=== PATIENT | female | born 2000 | race African-American/Black ===

== ENCOUNTER 2018-04-12 11:25 | Emergency (ER) | payer OTHER, MEDICAID ==
[~2018-04-12] VITALS: Ht 177.8 cm; Wt 71.7 kg
[~2018-04-12 11:25] MED LIST: AMOXICILLIN500 M1 PO; AMOXICILLIN875 MG PO; BACTRIM DS TAB1 EACH PO; CHERATUSSIN AC118 ML PO; CLARITIN10 MG PO; DEPO-PROVE150 MG/1 M IM; IBUPROFEN 600600 M1 PO; NOHOMEMEDICATIONS; PREDNISONE 10 M10 MG PO; PREDNISONE 20 M20 M1 PO; PREDNISONE 20 M20 MG PO; PROAIR HFA8.5 GM IH; TESSALON PERLE100 MG PO; VENTOLIN HFA 1818 GM INH; ZPAK PO
[2018-04-12 12:03] LABS: ABSOLUTE LYMPHOCYTES 1.3 thou/uL (0.8-5.3); ABSOLUTE MONOCYTES 0.3 thou/uL (0.0-1.2); ABSOLUTE NEUTROPHILS 2.2 thou/uL (1.6-8.1); BASOPHILS 0.9 %; EOSINOPHILS 1.1 %; HEMATOCRIT 37.4 % (37.0-47.0); HEMOGLOBIN 12.4 gm/dL (12.0-15.0); LYMPHOCYTES 33.2 %; MCH 31.2 pg (26.0-34.0); MCHC 33.2 g/dL (28.0-37.0); MONOCYTES 7.1 %; MPV 9.8 fl. (7.2-11.1); NUCLEATED RBCS 0 /100WBC; PLATELET COUNT* 160 thou/uL (150-400); POLYS 57.7 %; RBC 3.98 mil/uL (4.20-5.00); RDW-CV 13.6 % (10.5-14.5); WBC 3.8 thou/uL (4.0-11.0)
[2018-04-12 12:07] LABS: CALCIUM 8.9 mg/dL (8.5-10.1); CREATININE 0.8 mg/dL (0.6-1.3); POTASSIUM 3.9 mmol/L (3.5-5.1)
[2018-04-12 12:12] LABS: ALBUMIN 3.7 g/dL (3.4-5.0); TOTAL BILIRUBIN 0.7 mg/dL (<0.1-1.0)
[2018-04-12 13:25] LABS: URINE BILIRUBIN NEGATIVE (Negative); URINE BLOOD 3+ (Negative); URINE CLARITY CLEAR; URINE COLOR YELLOW; URINE GLUCOSE-RANDOM NEGATIVE (Negative); URINE KETONES NEGATIVE (Negative); URINE LEUKOCYTES-REFLEX NEGATIVE (Negative); URINE NITRITE-REFLEX NEGATIVE (Negative); URINE PROTEIN NEGATIVE (Negative); URINE UROBILINOGEN 0.2 E.U./dl (0.2-1.0)
[2018-04-12 13:31] LABS: BACTERIA-REFLEX 1-9 Few /HPF (None Seen); CASTS None Seen /LPF (None Seen); CRYSTALS None Seen /LPF (None Seen); MUCUS None Seen strn/LPF (None Seen); SQUAMOUS 0-3 Few /LPF (0-3); URINE WBC-REFLEX 0-5 Rare /HPF (0-5)
[2018-04-12] MEDS ORDERED: TRAMADOL 50 MG50 MG PO (13:48)
[2018-04-12] MEDS ORDERED: NAPROSYN500 MG PO (13:48)
[2018-04-12 16:40] VITALS: BP 109/62
== END 2018-04-12 16:41 | disposition home or self-care (01) ==
LOC: M.ERS 11:25
PROVIDERS: Physician Assistant
DX: R10.2 Pelvic and perineal pain (principal); N93.8 Other specified abnormal uterine and vaginal bleeding; N83.201 Unspecified ovarian cyst, right side

== ENCOUNTER 2019-08-01 16:21 | Emergency (ER) | payer MEDICAID ==
[~2019-08-01] VITALS: Ht 180.3 cm; Wt 64.4 kg
[~2019-08-01 16:21] MED LIST changes: +NAPROSYN500 MG PO; +TRAMADOL 50 MG50 MG PO
[2019-08-01 18:07] VITALS: BP 110/67
== END 2019-08-01 18:08 | disposition home or self-care (01) ==
LOC: M.ERS 16:21
DX: S91.211A Laceration without foreign body of right great toe with damage to nail, initial encounter (principal); W26.8XXA Contact with other sharp object(s), not elsewhere classified, initial encounter; Y93.89 Activity, other specified; Y92.89 Other specified places as the place of occurrence of the external cause; Y99.8 Other external cause status

== ENCOUNTER 2020-02-05 08:25 | Emergency (ER) | payer OTHER ==
[~2020-02-05] VITALS: Ht 152.4 cm; Wt 64.4 kg
[2020-02-05 08:59] LABS: ABSOLUTE LYMPHOCYTES 1.5 thou/uL (0.8-5.3); ABSOLUTE MONOCYTES 0.3 thou/uL (0.0-1.2); ABSOLUTE NEUTROPHILS 2.1 thou/uL (1.6-8.1); BASOPHILS 0.6 %; EOSINOPHILS 0.7 %; HEMOGLOBIN 12.3 gm/dL (12.0-15.0); LYMPHOCYTES 39.1 %; MCH 31.4 pg (26.0-34.0); MCHC 34.3 g/dL (28.0-37.0); MCV 91.8 fL (80.0-100.0); MONOCYTES 7.8 %; NUCLEATED RBCS 0 /100WBC; PLATELET COUNT* 183 thou/uL (150-400); POLYS 51.8 %; RBC 3.93 mil/uL (4.20-5.00)
[2020-02-05 09:20] LABS: CALCIUM 8.9 mg/dL (8.5-10.1); CREATININE 0.8 mg/dL (0.6-1.3); POTASSIUM 3.6 mmol/L (3.5-5.1)
[2020-02-05 09:24] LABS: ALBUMIN 3.9 g/dL (3.4-5.0); TOTAL BILIRUBIN 0.9 mg/dL (<0.1-1.0); TOTAL PROTEIN 7.3 g/dL (6.4-8.2)
[2020-02-05] MEDS ORDERED: FLEXERIL PO (09:52)
[2020-02-05] MEDS ORDERED: IBUPROFEN 800800 M1 PO (09:52)
[2020-02-05 10:07] VITALS: BP 120/66
--- NOTE | 2020-02-05 16:29 | EKG ---
[place] [address] ELECTROCARDIOGRAM REPORT Name: KAYODE BYRD Room: [facility]#: [id number] Admission: 02/05/20 Attend Phys: Discharge: 02/05/20 Date of : 89 Date of Service: 02/05/20829 Report #: [id number] THIS REPORT FOR: //name// [facility] ED Test Date: 2020-02-05 Test Time: 08:30:17 Pat Name: KAYODE BYRD Department: Room: Gender: F Architectural Draftsman: LYLY : 2000 Requested By: Osbaldo Everett Order Number: [id number] MD: Woody Maya Measurements Intervals [place] Rate: 58 P: -28 ID: [id number] QRS: -12 QRSD: 99 T: -1 QT: 399 QTc: 392 Interpretive Statements Sinus rhythm No previous ECG available for comparison Electronically Signed On 02-05-2020 16:28:44 CDT by Woody Maya [email or web address] <ELECTRONICALLY SIGNED> By: Woody Maya MD, [facility] 02/05/20 1628 9 9 Woody Maya MD, FACC /EPI
== END 2020-02-05 10:09 | disposition home or self-care (01) ==
LOC: M.ERS 08:25
PROVIDERS: Emergency Medicine Emergency Medical Services
DX: M94.0 Chondrocostal junction syndrome [Tietze] (principal); M79.661 Pain in right lower leg